=== PATIENT | female | born 1990 | race Caucasian/White ===

== ENCOUNTER 2019-12-24 12:04 | Inpatient (IN) ==
[2019-12-24] MEDS ORDERED: methylPREDNISolone 125 MG/2 ML VIAL IV STA (13:16)
[2019-12-24] MEDS ORDERED: ALBUT/IPRATROP 3MG/0.5MG NEB 3 ML VIAL NEB ONE (13:16)
--- NOTE | 2019-12-24 13:19 | Emergency Department Note ---
History of Present Illness General Chief Complaint: Shortness of Breath/Dyspnea Stated Complaint: TROUBLE BREATHING History of Present Illness Maximum Pain Intensity: 5 HPI Narrative: This patient is a pleasant 29-year-old female who presents emergency department ambulatory for evaluation of shortness of breath that started yesterday. She reports a mild productive cough for the last week. No fever. Denies chest pain. No sick contacts. The patient has a history of asthma. She tried her rescue inhaler at home with no relief. The patient does not take any baseline medication for her asthma. Home Medications Home Medications Medication Instructions Recorded Confirmed Type albuterol sulfate 1 puff INHALATION Q6H PRN 08/07/19 12/24/19 History prednisone See Rx Instructions .ROUTE .COMPLEX 12/24/19 12/24/19 History Allergies Allergy/AdvReac Type Severity Reaction Status Date / Time No Known Allergies Allergy Unverified 12/24/19 14:35 Past Med/Surg History Medical History Asthma Family History Father Cancer prostate cancer Social History Preferred Language: Croatian Communication Ability: Effective Geriatric Personal Care Aide Required: No Beliefs That Will Affect Care: None Current Living Situation: Spouse Other Information That Helps Us Care for You: No Feels Safe at Home: Yes Safety Concerns: Feels Safe At This Time Smoking Status: Never smoker Hx Alcohol Use: No Hx Substance Use: No Review of Systems A total of 10 systems reviewed and were otherwise negative Physical Exam Vital Signs: Vital Signs - 24 hr 12/24/19 12:08 12/24/19 12:45 12/24/19 13:00 Temperature 36.7 C Temperature Source Oral Pulse Rate 106 H 101 H Pulse Rate [Finger ] Pulse Rate from Sp O2 Sensor 101 H Pulse Rhythm [Fing er] Pulse Strength [Fi nger] Respiratory Rate 24 18 Respiratory Effort / Characteristics Short of Breath SO B on Exertion Non-Labored Sponta neous Respiratory Depth Normal Respiratory Patter n Regular Regular Blood Pressure 143/82 H 136/81 Blood Pressure [Ri ght Arm] Blood Pressure Shanice n 102 83 Blood Pressure Shanice n [Right Arm] Blood Pressure Pos ition Sitting Blood Pressure Pos ition [Right Arm] Pulse Oximetry 90 92 Oxygen Delivery Me thod Room Air Room Air Oxygen Flow Rate Sepsis Recent Feve r Within 48 Hours No Sepsis Action Take n by Nursing No Action Required Oxygen Flow Rate - Titration Pulse Oximetry Pos t Tiitration 12/24/19 13:05 12/24/19 13:30 12/24/19 13:41 Temperature Temperature Source Pulse Rate 89 Pulse Rate [Finger ] 93 H Pulse Rate from Sp O2 Sensor 91 H Pulse Rhythm [Fing er] Pulse Strength [Fi nger] Respiratory Rate 14 18 Respiratory Effort / Characteristics Non-Labored Sponta neous Respiratory Depth Respiratory Patter n Blood Pressure 102/79 Blood Pressure [Ri ght Arm] Blood Pressure Shanice n 80 Blood Pressure Shanice n [Right Arm] Blood Pressure Pos ition Blood Pressure Pos ition [Right Arm] Pulse Oximetry 86 L 91 90 Oxygen Delivery Me thod Room Air Nasal Can nula Nasal Cannula Oxygen Flow Rate 0 1 Sepsis Recent Feve r Within 48 Hours Sepsis Action Take n by Nursing Oxygen Flow Rate - Titration 2 Pulse Oximetry Pos t Tiitration 95 12/24/19 14:00 12/24/19 14:30 12/24/19 15:00 Temperature Temperature Source Pulse Rate 94 H 103 H Pulse Rate [Finger ] 97 H Pulse Rate from Sp O2 Sensor 95 H 103 H 106 H Pulse Rhythm [Fing er] Regular Pulse Strength [Fi nger] Normal Respiratory Rate 22 21 Respiratory Effort / Characteristics Non-Labored Sponta neous Respiratory Depth Normal Respiratory Patter n Regular Blood Pressure 131/89 142/81 H 142/93 H Blood Pressure [Ri ght Arm] 131/89 Blood Pressure Shanice n 99 100 104 Blood Pressure Shanice n [Right Arm] 103 Blood Pressure Pos ition Blood Pressure Pos ition [Right Arm] Lying Pulse Oximetry 95 93 87 L Oxygen Delivery Me thod Nebulizer Nasal Cannula Oxygen Flow Rate 2 Sepsis Recent Feve r Within 48 Hours Sepsis Action Take n by Nursing Oxygen Flow Rate - Titration Pulse Oximetry Pos t Tiitration 12/24/19 15:30 Temperature Temperature Source Pulse Rate 99 H Pulse Rate [Finger ] Pulse Rate from Sp O2 Sensor 99 H Pulse Rhythm [Fing er] Pulse Strength [Fi nger] Respiratory Rate 16 Respiratory Effort / Characteristics Respiratory Depth Respiratory Patter n Blood Pressure 130/85 Blood Pressure [Ri ght Arm] Blood Pressure Shanice n 99 Blood Pressure Shanice n [Right Arm] Blood Pressure Pos ition Blood Pressure Pos ition [Right Arm] Pulse Oximetry 88 L Oxygen Delivery Me thod Oxygen Flow Rate 2 Sepsis Recent Feve r Within 48 Hours Sepsis Action Take n by Nursing Oxygen Flow Rate - Titration Pulse Oximetry Pos t Tiitration Constitutional: WD/WN, vitals as above Eyes: EOM intact bilaterally ENMT: external ear and nose normal, oropharynx normal Neck: trachea midline Respiratory: Tachypnea noted. Diffuse wheezing bilaterally. Cardiovascular: Rate/Rhythm: + tachycardic Gastrointestinal (Abdomen): normal bowel sounds, soft, nontender, no hepatosplenomegaly Musculoskeletal: no cyanosis or clubbing, extremities motor strength 5/5 Skin: no rashes, warm and dry Neurologic: Alert and oriented x3. No focal motor deficits. Psychiatric: Acting appropriately Course Course Patient was seen and examined Vital signs including blood pressure were reviewed medications list was verified with patient Labs were obtained, and a saline lock was established Medications and imaging ordered An order was placed for continuous cardiac monitoring. The monitor shows a rate of 106 with sinus tachycardia rhythm. Upon reevaluation, the patient was not feeling much better. We discussed her results. She voiced understanding. Case was discussed with my supervising physician in addition to the [facility] hospitalist service. She was ordered magnesium 2 g IV. The patient will be evaluated by the hospitalist service for possible inpatient management. Consultations Consultation #1: [facility] hospitalist service Administered Medications Acetaminophen (Tylenol) 650 mg PO Q4H PRN PRN Reason: Pain or Fever Stop: 01/23/20 17:56 Last Admin: 12/24/19 19:57 Dose: 650 mg Documented by: [id number] Albuterol (Duoneb) 3 ml NEB QIDR [facility] Stop: 01/23/20 18:59 Last Admin: 12/25/19 20:06 Dose: 3 ml Documented by: [id number] Admin: 12/25/19 15:18 Dose: 3 ml Documented by: [id number] Admin: 12/25/19 11:08 Dose: 3 ml Documented by: [id number] Admin: 12/25/19 06:53 Dose: 3 ml Documented by: [id number] Admin: 12/24/19 19:51 Dose: 3 ml Documented by: [id number] Budesonide (Pulmicort Respules) 0.25 mg NEB BIDR [facility] Stop: 01/24/20 11:44 Last Admin: 12/25/19 20:05 Dose: 0.25 mg Documented by: [id number] Admin: 12/25/19 12:09 Dose: 0.25 mg Documented by: [id number] Promethazine HCl 12.5 mg/ (Sodium Chloride) 50.5 mls @ 202 mls/hr IV Q6H PRN PRN Reason: Nausea And Vomiting Stop: 01/23/20 19:33 Last Infusion: 12/24/19 20:15 Dose: 0 mls/hr Documented by: [id number] Admin: 12/24/19 19:56 Dose: 202 mls/hr Documented by: [id number] Methylprednisolone 60 mg/ (Syringe) 0.96 mls @ 1.5 mls/min IV Q8 SHEILA Stop: 01/24/20 21:59 Last Admin: 12/26/19 05:53 Dose: 1.5 mls/min Documented by: [id number] Admin: 12/25/19 20:51 Dose: 1.5 mls/min Documented by: [id number] Sodium Chloride ([place] Nasal) 1 sprays NA BID SHEILA Stop: 01/24/20 20:14 Last Admin: 12/25/19 20:52 Dose: 1 sprays Documented by: [id number] Admin: 12/25/19 20:51 Dose: 1 sprays Documented by: [id number] Discontinued Medications Albuterol (Duoneb) 12 ml NEB ONE ONE Stop: 12/24/19 13:17 Last Admin: 12/24/19 13:38 Dose: 12 ml Documented by: [id number] Azithromycin (Zithromax) 500 mg PO NOW ONE Stop: 12/25/19 21:01 Last Admin: 12/25/19 20:51 Dose: 500 mg Documented by: [id number] Magnesium Sulfate/Dextrose (Magnesium Sulfate / D5w) 1 gm in 100 mls @ 200 mls/hr IV Q1H ONE Stop: 12/24/19 16:21 Last Infusion: 12/24/19 17:14 Dose: 0 mls/hr Documented by: [id number] Admin: 12/24/19 16:01 Dose: 200 mls/hr Documented by: [id number] Sodium Chloride (Nss 1000ml) 1,000 mls @ 125 mls/hr IV .Q8H SHEILA Stop: 12/25/19 01:56 Last Infusion: 12/25/19 02:45 Dose: 0 mls/hr Documented by: [id number] Infusion: 12/24/19 20:15 Dose: 125 mls/hr Documented by: [id number] Infusion: 12/24/19 19:58 Dose: 0 mls/hr Documented by: [id number] Admin: 12/24/19 18:24 Dose: 125 mls/hr Documented by: [id number] Methylprednisolone 40 mg/ (Syringe) 0.64 mls @ 1.5 mls/min IV Q8 SHEILA Stop: 01/23/20 21:59 Last Admin: 12/25/19 13:28 Dose: 1.5 mls/min Documented by: [id number] Admin: 12/25/19 05:55 Dose: 1.5 mls/min Documented by: [id number] Admin: 12/24/19 21:40 Dose: 1.5 mls/min Documented by: [id number] Sodium Chloride (Nss) 500 mls @ 500 mls/hr IV .Q1H ONE Stop: 12/26/19 00:28 Last Infusion: 12/26/19 01:09 Dose: 0 mls/hr Documented by: [id number] Admin: 12/26/19 00:09 Dose: 500 mls/hr Documented by: [id number] Methylprednisolone (Solumedrol) 125 mg IV NOW STA Stop: 12/24/19 13:17 Last Admin: 12/24/19 14:11 Dose: 125 mg Documented by: [id number] Ondansetron HCl (Zofran) Confirm Administered Dose 4 mg .ROUTE .STK-MED ONE Stop: 12/24/19 16:12 Last Admin: 12/24/19 16:13 Dose: 4 mg Documented by: [id number] Ondansetron HCl (Zofran) 4 mg IV NOW STA Stop: 12/24/19 16:24 Last Admin: 12/24/19 16:27 Dose: Not Given Documented by: [id number] Ondansetron HCl (Zofran) 4 mg IV NOW STA Stop: 12/24/19 19:34 Last Admin: 12/24/19 19:56 Dose: Not Given Documented by: [id number] Medical Decision Making Differential Diagnosis Differential diagnosis: Asthma exacerbation, viral illness, bacterial illness, pneumonia, pulmonary embolus, cardiac abnormality, among others Medical Records Attestation: I reviewed the patient's medical records. Home Medications Current Medication List: was personally reviewed by me Laboratory Data Attestation: I reviewed the patient's lab results. Result diagrams: 12/25/19 05:34 12/25/19 05:34 Lab Results 12/24/19 12/24/19 12/24/19 Range/Units 12:59 12:59 12:59 WBC 6.50 (4.8-10.8) K/uL RBC 4.91 (4.2-5.4) M/uL Hgb 12.8 (12.0-16.0) g/dL Hct 39.8 (37-47) % MCV 81.1 (80-100) fL MCH 26.1 (25-34) pg MCHC 32.2 (32-36) g/dL RDW Std Deviation 42.6 (36.4-46.3) fL RDW Coeff of Kiera 14.4 (11.5-14.5) % Plt Count 393 (130-400) K/uL MPV 9.8 (7.4-10.4) fL Immature Gran % (Auto) 0.2 % Neut % (Auto) 65.4 % Lymph % (Auto) 20.2 % Ritchie % (Auto) 6.2 % Eos % (Auto) 7.5 % Baso % (Auto) 0.5 % Immature Gran # (Auto) 0.01 (0.00-0.02) K/uL Neut # (Auto) 4.26 (1.4-6.5) K/uL Lymph # (Auto) 1.31 (1.2-3.4) K/uL Ritchie # (Auto) 0.40 (0.11-0.59) K/uL Eos # (Auto) 0.49 (0-0.5) K/uL Baso # (Auto) 0.03 (0-0.2) K/uL Sodium 140 (136-145) mmol/L Potassium 3.8 (3.5-5.1) mmol/L Chloride 108 H (98-107) mmol/L Carbon Dioxide 25 (21-32) mmol/L Anion Gap 7.0 (3-11) BUN 10 (7-18) mg/dl Creatinine 0.72 (0.6-1.2) mg/dl Est Cr Clr Drug Dosing 133.5 ml/min Est GFR ( Amer) 132.1 Est GFR (Non-Af Amer) 114.0 BUN/Creatinine Ratio 14.1 (10-20) Glucose 91 (70-99) mg/dl Calcium 9.5 (8.5-10.1) mg/dl Total Bilirubin 0.6 (0.2-1) mg/dl AST 10 L (15-37) U/L ALT 20 (12-78) U/L Alkaline Phosphatase 46 (45-117) U/L Total Protein 8.0 (6.4-8.2) gm/dl Albumin 4.3 (3.4-5.0) gm/dl Globulin 3.7 (2.5-4.0) gm/dl Albumin/Globulin Ratio 1.2 (0.9-2) HCG, Qual Negative (Negative) Influenza Type A (PCR) (Neg) Influenza Type B (PCR) (Neg) 12/24/19 Range/Units 13:59 WBC (4.8-10.8) K/uL RBC (4.2-5.4) M/uL Hgb (12.0-16.0) g/dL Hct (37-47) % MCV (80-100) fL MCH (25-34) pg MCHC (32-36) g/dL RDW Std Deviation (36.4-46.3) fL RDW Coeff of Kiera (11.5-14.5) % Plt Count (130-400) K/uL MPV (7.4-10.4) fL Immature Gran % (Auto) % Neut % (Auto) % Lymph % (Auto) % Ritchie % (Auto) % Eos % (Auto) % Baso % (Auto) % Immature Gran # (Auto) (0.00-0.02) K/uL Neut # (Auto) (1.4-6.5) K/uL Lymph # (Auto) (1.2-3.4) K/uL Ritchie # (Auto) (0.11-0.59) K/uL Eos # (Auto) (0-0.5) K/uL Baso # (Auto) (0-0.2) K/uL Sodium (136-145) mmol/L Potassium (3.5-5.1) mmol/L Chloride (98-107) mmol/L Carbon Dioxide (21-32) mmol/L Anion Gap (3-11) BUN (7-18) mg/dl Creatinine (0.6-1.2) mg/dl Est Cr Clr Drug Dosing ml/min Est GFR ( Amer) Est GFR (Non-Af Amer) BUN/Creatinine Ratio (10-20) Glucose (70-99) mg/dl Calcium (8.5-10.1) mg/dl Total Bilirubin (0.2-1) mg/dl AST (15-37) U/L ALT (12-78) U/L Alkaline Phosphatase (45-117) U/L Total Protein (6.4-8.2) gm/dl Albumin (3.4-5.0) gm/dl Globulin (2.5-4.0) gm/dl Albumin/Globulin Ratio (0.9-2) HCG, Qual (Negative) Influenza Type A (PCR) Neg for Influ A (Neg) Influenza Type B (PCR) Neg for Influ B (Neg) Imaging Data Attestation: I personally reviewed and interpreted this imaging study as follows: Radiologist's Impression: Chest x-ray IMPRESSION: No acute process. ACT 112: Negative or not required by law. The above report was generated using voice recognition software. It may contain grammatical, syntax or spelling errors. Electronically signed by: Lorne Rich M.D. 12/24/2019 3:24 PM Dictated: 12/24/19 1523 Transcribed: 12/24/19 1523 [facility] Narrative This patient is a 29-year-old female who presents to the emergency department with a nonproductive cough and shortness of breath. On exam, she was hypoxic. She had significant wheezing. Labs are fairly unremarkable. Influenza negative. Chest x-ray is clear. Unfortunately, the patient did not have symptomatic relief in the emergency department with an hour-long nebulizer treatment and steroids. For this reason, hospitalist evaluation was felt to be warranted. She will be evaluated for likely inpatient management. Of note, the patient did not have any risk factors for PE. She has significant wheezing on exam; therefore, a CT of the chest was felt unnecessary. Impression & Plan Asthma with exacerbation, Acute respiratory failure Discharge Plan Visit Data *Final* Discharge Date/Time: 12/24/19 17:18 Chief Complaint: Shortness of Breath/Dyspnea Stated Complaint: TROUBLE BREATHING ED Provider: Tsering,Devin T ED Midlevel Provider: Coco Ledesma Discharge Problem: Asthma with exacerbation, Acute respiratory failure Patient Disposition: Admitted As Inpatient Discharge Instructions Interventions: ED Discharge Assessment Last Done: 12/24/19 17:18
[2019-12-24 13:29] LABS: Basophils # (auto) 0.03 K/uL (0-0.2); Basophils % (auto) 0.5 %; Eosinophils # (auto) 0.49 K/uL (0-0.5); Eosinophils % (auto) 7.5 %; Hematocrit (blood only) 39.8 % (37-47); Hemoglobin 12.8 g/dL (12.0-16.0); Immature Granulocytes # (auto) 0.01 K/uL (0.00-0.02); Immature Granulocytes % (auto) 0.2 %; Lymphocytes # (auto) 1.31 K/uL (1.2-3.4); Lymphocytes % (auto) 20.2 %; Mean Corpuscular Hemoglobin 26.1 pg (25-34); Mean Corpuscular Hgb Conc 32.2 g/dL (32-36); Mean Corpuscular Volume 81.1 fL (80-100); Mean Platelet Volume 9.8 fL (7.4-10.4); Monocytes % (auto) 6.2 %; Neutrophils # (auto) 4.26 K/uL (1.4-6.5); Neutrophils % (auto) 65.4 %; Platelet Count 393 K/uL (130-400); RDW Coefficient of Variation 14.4 % (11.5-14.5); RDW Standard Deviation 42.6 fL (36.4-46.3); Red Blood Count 4.91 M/uL (4.2-5.4)
[2019-12-24 13:38] LABS: Albumin Level 4.3 gm/dl (3.4-5.0); BUN Creatinine Ratio 14.1 (10-20); Calcium 9.5 mg/dl (8.5-10.1); Creatinine Clr Calc Pharmacy 133.5 ml/min; Est GFR (African American) 132.1; Potassium 3.8 mmol/L (3.5-5.1)
[2019-12-24 13:40] LABS: Albumin Globulin Ratio 1.2 (0.9-2); Bilirubin,Total 0.6 mg/dl (0.2-1); Globulin 3.7 gm/dl (2.5-4.0)
[2019-12-24 14:02] LABS: Pregnancy Test, Serum Negative (Negative)
[2019-12-24 14:51] LABS: Influenza A virus by PCR Neg for Influ A (Neg); Influenza B virus by PCR Neg for Influ B (Neg)
--- NOTE | 2019-12-24 15:26 | XRay Report ---
XR chest 2V PA/lateral HISTORY: 29 years-old Female SOB acute shortness of breath with cough COMPARISON: Chest radiographs 08/07/2019 TECHNIQUE: PA and lateral views of the chest FINDINGS: Cardiomediastinal and hilar silhouettes are within normal limits. No pneumothorax, pleural effusion, focal airspace consolidation or overt pulmonary edema. The bones of the chest appear grossly intact. IMPRESSION: No acute process. ACT 112: Negative or not required by law. The above report was generated using voice recognition software. It may contain grammatical, syntax o r spelling errors. Electronically signed by: Lorne Rich M.D. 12/24/2019 3:24 PM
[2019-12-24] MEDS ORDERED: MAGNESIUM SULFATE / D5W 1 GM/100 ML BAG IV ONE (15:52)
[2019-12-24] MEDS ORDERED: ONDANSETRON INJ 2 MG/ML 2 ML VIAL ONE (16:11)
[2019-12-24] MEDS ORDERED: ONDANSETRON INJ 2 MG/ML 2 ML VIAL IV STA ×2 (16:23→19:33)
--- NOTE | 2019-12-24 16:28 | History & Physical Report ---
Date of Service December 24, 2019 Assessment & Plan (1) Asthma exacerbation: (2) Hypoxia: Presented to ER with c/o increased SOB/wheezing x 1 month with acute worsening over past day In ER afebrile, P: 106, R: 24, BP: 143/82, 90% RA drops to 88%, up to 91% on 2L NC No leukocytosis. Negative influenza swab. Chest x-ray without acute infiltrate -In ER given hour-long nebulizer, Solu-Medrol 125 mg IV, magnesium 1 g IV -Supplemental oxygen as needed -Solu-Medrol 40mg IVQ8H -Scheduled duonebs -Patient was prescribed Advair and prednisone taper outpatient several weeks ago however never started -Consider PFT testing outpatient when symptoms improve -CBC, BMP in am DVT Prophylaxis -Ambulate, low risk Full Code Follows with Dr Lesli Clay for routine care Pt was seen and care coordinated with Dr Ortiz. See addendum History of Present Illness Chief Complaint: SOB Primary Care Provider: Lesli Clay DO Pt is 29 y/o F with PMH asthma presented to ER with complaint of increased shortness of breath. She reports for the past month has had increased shortness of breath and wheezing. She reports needing to use her albuterol inhaler several times a day with some relief. Reports prior asthma triggers are exercise. Patient states last night became more short of breath and had increased wheezing and nonproductive cough. Denies fevers or chills. Denies hx PFT testing in past. Seen in clinic 12/14/2019 for increased SOB and wheezing and was prescribed Prednisone taper and Advair however did not start taking these medications. Patient reports vapes approximately 3 times a week. Denies tobacco smoking or being around secondhand smoke. Denies ill contacts, recent travel. In ER was given IV magnesium and then became nauseated and vomited times once. Otherwise denies any nausea prior. Denies diarrhea, constipation, TOL[place], dizziness, syncope, vision changes, neck pain, orthopnea, palpitations, sore throat, choking, otalgia, rhinorrhea, abdominal pain, paresthesias, weakness, extremity weakness, extremity edema, rashes, urinary symptoms. Allergies Allergy/AdvReac Type Severity Reaction Status Date / Time No Known Allergies Allergy Unverified 12/24/19 14:35 Home Medications Home Medications Medication Instructions Recorded Confirmed Type albuterol sulfate 1 puff INHALATION Q6H PRN 08/07/19 12/24/19 History prednisone See Rx Instructions .ROUTE .COMPLEX 12/24/19 12/24/19 History Past Med/Surg History Medical History Asthma Family History (Updated 12/24/19 @ 18:15 by Jessie Dee PA-C) Father Cancer prostate cancer Social History Preferred Language: Latvian Communication Ability: Effective Pile Trimmer Required: No Beliefs That Will Affect Care: None Current Living Situation: Spouse Other Information That Helps Us Care for You: No Feels Safe at Home: Yes Safety Concerns: Feels Safe At This Time Smoking Status: Never smoker Hx Alcohol Use: No Hx Substance Use: No Review of Systems Review of Systems: All systems reviewed & are unremarkable except as noted in HPI & below Physical Exam Physical Exam: General: no distress, WDWN Head: normocephalic, atraumatic Eyes: PERRL, EOM's intact, conjunctiva non-injected, anicteric ENT: normal inspection external ears, nose, mucous membranes moist Neck: supple, trachea midline Lungs: mild respiratory distress, 91% on 2L NC, +diffuse wheezing throughout, no rhonchi/rales CV: RRR, no murmur, no pretibial edema Abd: normal BS, soft, non-tender Ext: no cyanosis, no calf tenderness Neuro: A&O x 3, no focal deficits noted, normal affect Skin: warm, dry Results & Data Vital Signs (Past 12 Hours) Vital Signs Temp Pulse Pulse Resp BP BP Pulse Ox 12/24/19 15:30 99 H 16 130/85 88 L 12/24/19 15:00 142/93 H 87 L 12/24/19 14:30 103 H 21 142/81 H 93 12/24/19 14:00 94 H 97 H 22 131/89 131/89 95 12/24/19 13:41 93 H 18 90 12/24/19 13:30 89 14 102/79 91 12/24/19 13:05 86 L 12/24/19 13:00 101 H 18 136/81 92 12/24/19 12:08 36.7 C 106 H 24 143/82 H 90 Laboratory Results Short CBC 12/24/19 Range/Units 12:59 WBC 6.50 (4.8-10.8) K/uL Hgb 12.8 (12.0-16.0) g/dL Hct 39.8 (37-47) % Plt Count 393 (130-400) K/uL BMP 12/24/19 12:59 Sodium 140 Potassium 3.8 Chloride 108 H Carbon Dioxide 25 BUN 10 Creatinine 0.72 Glucose 91 Calcium 9.5 Liver Function 12/24/19 Range/Units 12:59 Total Bilirubin 0.6 (0.2-1) mg/dl AST 10 L (15-37) U/L ALT 20 (12-78) U/L Alkaline Phosphatase 46 (45-117) U/L Albumin 4.3 (3.4-5.0) gm/dl Diagnostic Findings CXR: IMPRESSION: No acute process. Code Status & VTE Plan VTE Prophylaxis Plan VTE Prophylaxis will be ordered: No Supervising Physician Co-Signing Physician Notes Attending addendum The patient was seen and examined in emergency room She has history of asthma and has been complaining of more shortness of breath with cough since Tuesday last Denies any fever and/or chills Denies any chest pain and/or palpitation On examination Minimal shortness of breath at rest Hemodynamically stable with tachycardia of about 104/min Chest- decreased breath sounds bilaterally with moderate wheezing all over without any crackles Heart-S1, S2-regular Abdomen-benign Extremities-negative for any edema 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
[2019-12-24] MEDS ORDERED: SODIUM CHLORIDE 0.9% 1000ML 1,000 ML IV SCH (17:57)
[2019-12-24] MEDS ORDERED: ONDANSETRON INJ 2 MG/ML 2 ML VIAL IV PRN (17:57)
[2019-12-24] MEDS ORDERED: ACETAMINOPHEN 325 MG TAB PO PRN (17:57)
[2019-12-24] MEDS ORDERED: PROMETHAZINE HCL 12.5 MG in SODIUM CHLORIDE 0.9% 50 ML IV PRN (19:34)
[2019-12-24] MEDS: ALBUT/IPRATROP 3MG/0.5MG NEB 3 ML VIAL NEB SCH (19:51)
[2019-12-24] MEDS: methylPREDNISolone 40 MG in SYRINGE 0 ML IV SCH (21:40)
[2019-12-25] MEDS: methylPREDNISolone 40 MG in SYRINGE 0 ML IV SCH ×2 (05:55→13:28)
[2019-12-25 06:07] LABS: Hematocrit (blood only) 38.5 % (37-47); Hemoglobin 12.3 g/dL (12.0-16.0); Mean Corpuscular Hemoglobin 25.8 pg (25-34); Mean Corpuscular Hgb Conc 31.9 g/dL (32-36); Mean Corpuscular Volume 80.7 fL (80-100); Mean Platelet Volume 9.7 fL (7.4-10.4); Platelet Count 404 K/uL (130-400); RDW Coefficient of Variation 14.2 % (11.5-14.5); RDW Standard Deviation 41.9 fL (36.4-46.3); Red Blood Count 4.77 M/uL (4.2-5.4); White Blood Count 7.42 K/uL (4.8-10.8)
[2019-12-25 06:36] LABS: BUN Creatinine Ratio 13.5 (10-20); Calcium 9.1 mg/dl (8.5-10.1); Creatinine Clr Calc Pharmacy 158.4 ml/min; Est GFR (African American) 143.8; Potassium 4.3 mmol/L (3.5-5.1)
[2019-12-25] MEDS: ALBUT/IPRATROP 3MG/0.5MG NEB 3 ML VIAL NEB SCH ×4 (06:53→20:06)
[2019-12-25] MEDS ORDERED: ALBUT/IPRATROP 3MG/0.5MG NEB 3 ML VIAL NEB PRN (11:59)
[2019-12-25] MEDS: BUDESONIDE 0.25 MG/2 ML VIAL (PULMICORT) NEB SCH ×2 (12:09→20:05)
--- NOTE | 2019-12-25 20:15 | Hospitalist Progress Note ---
Date of Service December 25, 2019 Assessment & Plan (1) Asthma exacerbation: (2) Hypoxia: Presented to ER with c/o increased SOB/wheezing x 1 month with acute worsening over past day In ER afebrile, P: 106, R: 24, BP: 143/82, 90% RA drops to 88%, up to 91% on 2L NC No leukocytosis. Negative influenza swab. Chest x-ray without acute infiltrate -In ER given hour-long nebulizer, Solu-Medrol 125 mg IV, magnesium 1 g IV -pt vomited after getting Mag in the ED (Mag level checked this AM - 2.8) -Supplemental oxygen as needed -Solu-Medrol 40mg IVQ8H -Scheduled DuoNebs -Patient was prescribed Advair and prednisone taper outpatient several weeks ago however never started -Consider PFT testing outpatient when symptoms improve -CBC, BMP in am - pt seemed to have more rhonchi and then significant nasal congestion in the afternoon, increased steroid to 60 IV q8hrs, added nasal spray and azithromycin - will cont. to closely monitor DVT Prophylaxis -Ambulate, low risk Full Code Follows with Dr Lesli Clay for routine care Admission and Anticipated Discharge Date Admission Date: December 24, 2019 Subjective Pt is lying in bed, in NAD. On oxymask, 5L. Denies any fever, chills, chest pain, rhinorrhea, sinus congestion. Also denies any abd.pain, nausea or vomiting. Update: evaluated later in the day, pt seemed to have nasal/sinus congestion Review of Systems Review of Systems: All systems reviewed & are unremarkable except as noted in HPI & below Constitutional: no fever and no chills Respiratory: + cough and + dyspnea Cardiovascular: no chest pain, no palpitations and no edema Gastrointestinal: no abdominal pain, no nausea and no vomiting Physical Exam Physical Exam: General: young female, lying in bed, on oxymask, 5L, does not appear in distress Head: normocephalic, atraumatic Eyes: PERRL, EOM's intact, conjunctiva non-injected, anicteric ENT: normal inspection external ears, nose, mucous membranes moist Neck: supple, trachea midline Lungs: +mild diffuse wheezing and + loud diffuse rhonchi CV: RRR, no murmur, no pretibial edema Abd: normal BS, soft, non-tender, nondistended Ext: no cyanosis, no calf tenderness Neuro: A&O x 3, speech fluent, no facial asymmetry, no focal deficits noted, normal affect, moves extremities spontaneously Skin: warm, dry Results & Data ([facility]) Vital Signs (Past 12 Hours) Vital Signs Temp Pulse Pulse Resp BP BP Pulse Ox 12/25/19 20:06 114 H 20 97 12/25/19 19:00 36.8 C 96 H 16 109/57 L 94 12/25/19 15:41 102 H 12/25/19 15:35 96 H 18 112/65 12/25/19 15:20 90 18 96 12/25/19 15:12 37.0 C 84 20 119/63 95 12/25/19 12:13 94 H 16 90 12/25/19 11:39 37 C 87 20 117/69 95 12/25/19 11:08 100 H 16 94 Laboratory Results 12/25/19 12/25/19 12/25/19 Range/Units 12:14 11:46 05:34 WBC (4.8-10.8) K/uL RBC (4.2-5.4) M/uL Hgb (12.0-16.0) g/dL Hct (37-47) % MCV (80-100) fL MCH (25-34) pg MCHC (32-36) g/dL RDW Std Deviation (36.4-46.3) fL RDW Coeff of Kiera (11.5-14.5) % Plt Count (130-400) K/uL MPV (7.4-10.4) fL Sodium 138 (136-145) mmol/L Potassium 4.3 (3.5-5.1) mmol/L Chloride 107 (98-107) mmol/L Carbon Dioxide 24 (21-32) mmol/L Anion Gap 6.0 (3-11) BUN 8 (7-18) mg/dl Creatinine 0.60 (0.6-1.2) mg/dl Est Cr Clr Drug Dosing 158.4 ml/min Est GFR ( Amer) 143.8 Est GFR (Non-Af Amer) 124.0 BUN/Creatinine Ratio 13.5 (10-20) Glucose 134 H (70-99) mg/dl Calcium 9.1 (8.5-10.1) mg/dl Magnesium 2.8 H (1.8-2.4) mg/dl Procalcitonin < 0.05 (0-0.5) ng/ml 12/25/19 Range/Units 05:34 WBC 7.42 (4.8-10.8) K/uL RBC 4.77 (4.2-5.4) M/uL Hgb 12.3 (12.0-16.0) g/dL Hct 38.5 (37-47) % MCV 80.7 (80-100) fL MCH 25.8 (25-34) pg MCHC 31.9 L (32-36) g/dL RDW Std Deviation 41.9 (36.4-46.3) fL RDW Coeff of Kiera 14.2 (11.5-14.5) % Plt Count 404 H (130-400) K/uL MPV 9.7 (7.4-10.4) fL Sodium (136-145) mmol/L Potassium (3.5-5.1) mmol/L Chloride (98-107) mmol/L Carbon Dioxide (21-32) mmol/L Anion Gap (3-11) BUN (7-18) mg/dl Creatinine (0.6-1.2) mg/dl Est Cr Clr Drug Dosing ml/min Est GFR ( Amer) Est GFR (Non-Af Amer) BUN/Creatinine Ratio (10-20) Glucose (70-99) mg/dl Calcium (8.5-10.1) mg/dl Magnesium (1.8-2.4) mg/dl Procalcitonin (0-0.5) ng/ml Medications Administered Current Inpatient Medications Acetaminophen (Tylenol) 650 mg PO Q4H PRN PRN Reason: Pain or Fever Stop: 01/23/20 17:56 Last Admin: 12/24/19 19:57 Dose: 650 mg Documented by: Albuterol (Duoneb) 3 ml NEB QIDR [facility] Stop: 01/23/20 18:59 Last Admin: 12/25/19 20:06 Dose: 3 ml Documented by: Albuterol (Duoneb) 3 ml NEB Q2H PRN PRN Reason: wheezing Stop: 01/24/20 11:59 Budesonide (Pulmicort Respules) 0.25 mg NEB BIDR [facility] Stop: 01/24/20 11:44 Last Admin: 12/25/19 20:05 Dose: 0.25 mg Documented by: Methylprednisolone 40 mg/ (Syringe) 0.64 mls @ 1.5 mls/min IV Q8 SHEILA Stop: 01/23/20 21:59 Last Admin: 12/25/19 13:28 Dose: 1.5 mls/min Documented by: Promethazine HCl 12.5 mg/ (Sodium Chloride) 50.5 mls @ 202 mls/hr IV Q6H PRN PRN Reason: Nausea And Vomiting Stop: 01/23/20 19:33 Last Infusion: 12/24/19 20:15 Dose: Infused Documented by: Ondansetron HCl (Zofran) 4 mg IV Q6H PRN PRN Reason: Nausea Stop: 01/23/20 17:56 Sodium Chloride ([place] Nasal) 1 sprays NA BID ONE Stop: 12/25/19 20:10
[2019-12-25] MEDS: SODIUM CHLORIDE 0.65% NA SOLN 45 ML (OCEAN) SCH ×2 (20:51→20:52)
[2019-12-25] MEDS: methylPREDNISolone 60 MG in SYRINGE 0 ML IV SCH (20:51)
[2019-12-25] MEDS ORDERED: AZITHROMYCIN 250 MG TAB PO ONE (21:00)
[2019-12-25] MEDS ORDERED: SODIUM CHLORIDE 0.9% 500 ML IV ONE (23:29)
[2019-12-26] MEDS: methylPREDNISolone 60 MG in SYRINGE 0 ML IV SCH (05:53)
[2019-12-26] MEDS: BUDESONIDE 0.25 MG/2 ML VIAL (PULMICORT) NEB SCH ×2 (07:33→18:48)
[2019-12-26] MEDS: ALBUT/IPRATROP 3MG/0.5MG NEB 3 ML VIAL NEB SCH ×4 (07:34→18:48)
[2019-12-26] MEDS: SODIUM CHLORIDE 0.65% NA SOLN 45 ML (OCEAN) SCH ×2 (08:16→20:44)
[2019-12-26] MEDS: AZITHROMYCIN 250 MG TAB PO SCH (08:16)
--- NOTE | 2019-12-26 13:52 | Hospitalist Progress Note ---
Date of Service December 26, 2019 Assessment & Plan (1) Asthma exacerbation: Presented with acute hypoxemic respiratory failure: History of asthma, Presents to the ER with complaint of shortness of breath/wheezing In the ER patient was afebrile, was tachycardic, tachypneic respiratory 24 SPO2 dropped to 88% in room air, Required supplemental oxygen Flu swab negative, chest x-ray shows no evidence of infiltrate Patient started with IV Solu-Medrol for asthma exacerbation, Continue scheduled DuoNeb She was prescribed Advair and prednisone taper outpatient several weeks ago which she never started Respiratory status gradually improving, supplemental oxygen has been weaned down Patient reports of no cough no respiratory distress, Wheeze noted, We will DC IV Solu-Medrol start with p.o. prednisone, will gradual taper Will need outpatient pulmonary function testing Patient is a non-smoker, Admits of vaping a month ago Patient is counseled for complete abstinence from vaping, as it has been increasing evidence to cause significant lung injury/respiratory failure Verbalized understanding (2) Sinus tachycardia: Patient noted to be in sinus tach with heart rate variable between 100 at resting, [id number] with minimum activity/ambulation She denies of any symptoms-palpitation chest heaviness, dizzy spell or lightheadedness Reports of feeling anxious, felt flushed after IV steroids yesterday, IV Solu-Medrol discontinued, no audible wheeze, started with p.o. prednisone taper We will check for d-dimer, will need CT chest with contrast study to rule out PE/lower extremity Doppler to rule out DVT : if d-dimer is positive CODE STATUS: Full code Disposition: To be discharged home when medically stable Admission and Anticipated Discharge Date Admission Date: December 24, 2019 Subjective Patient appears to be comfortable, at present on 2 L oxygen via nasal cannula (not on home O2 Sinus tachycardia noted with activity/ambulation heart rate noted to be 150 at around 930 this morning Patient denies of any feeling of palpitation, shortness of breath or dyspnea on exertion, no dizzy spell or lightheadedness Does not have any cough No fevers or chills Review of Systems Review of Systems: All systems reviewed & are unremarkable except as noted in HPI & below Constitutional: no fever, no chills and no fatigue Respiratory: + wheezing; no cough, no dyspnea, no dyspnea on exertion and no pain with cough Cardiovascular: + chest pain, + chest pain at rest and + problem reported (Tachycardia); no palpitations Gastrointestinal: no abdominal pain Physical Exam Constitutional: WD/WN, vitals as above no acute distress Eyes: PERRL, conjunctivae normal, anicteric sclerae ENMT: external ear and nose normal, oropharynx normal Neck: trachea midline, no thyromegaly Respiratory: normal respiratory effort and + cough; no respiratory distress Auscultation: no crackles, no rhonchi and no wheezes Cardiovascular: Rate/Rhythm: regular rate, regular rhythm and + tachycardic (Rate increases to 150 with activity) Gastrointestinal (Abdomen): normal bowel sounds, soft, nontender, no hepato splenomegaly Musculoskeletal: no cyanosis or clubbing, extremities motor strength 5/5 Skin: no rashes, warm and dry Neurologic: PERRL, EOMI, accommodation nl, no face palsy, no dysarthria Psychiatric: A+Ox3, euthymic affect Results & Data ([facility]) Vital Signs (Past 12 Hours) Vital Signs Temp Pulse Pulse Resp BP BP Pulse Ox 12/26/19 13:41 105 H 94 12/26/19 11:32 36.5 C 103 H 20 121/62 94 12/26/19 11:19 89 16 95 12/26/19 08:56 12/26/19 07:43 36.6 C 70 18 101/57 L 96 12/26/19 07:37 64 18 97 12/26/19 07:05 77 12/26/19 04:00 36.7 C 76 20 113/61 96 Pulse Ox 12/26/19 13:41 12/26/19 11:32 12/26/19 11:19 12/26/19 08:56 91 12/26/19 07:43 12/26/19 07:37 12/26/19 07:05 12/26/19 04:00
[2019-12-26 17:44] LABS: D Dimer 770 ug/L FEU (0-500)
[2019-12-26] MEDS ORDERED: OPTIRAY 320 125ml IV PRN (22:41)
--- NOTE | 2019-12-26 22:56 | CT Scan Report ---
CHEST CTA for PULMONARY ARTERIES CT DOSE: 336.69 mGy.cm HISTORY: Asthma. Difficulty breathing. TECHNIQUE: Multiaxial CT images of the chest were performed following the intravenous administration of contrast to evaluate the pulmonary arteries. Maximal intensity projection images were also obtaine d. A dose lowering technique was utilized adhering to the principles of ALARA. COMPARISON STUDY: Chest 12/24/2019. FINDINGS: Normal caliber thoracic aorta with no evidence for dissection. No pericardial effusion. Tra ce bilateral pleural effusions. No filling defects within the pulmonary arteries to suggest pulmonary embolus. No fractures within the visualized osseous structures. Limited views of the upper abdomen d emonstrate a normal liver and spleen. Normal esophagus. No mediastinal or hilar lymphadenopathy. No p neumothorax. The central airways are patent. Mild central bronchial wall thickening. A few partially opacified left lower lobe bronchi. A few bibasilar linear groundglass densities most pronounced withi n the left lower lobe. IMPRESSION: 1. No evidence for pulmonary embolus. 2. Trace bilateral pleural effusions. 3. Mild bronchial wall thickening. This could be secondary to a bronchitis/reactive airways disease. 4. A few bibasilar linear and groundglass densities. This favors atelectasis. A mild pneumonitis coul d also have a similar appearance. ACT 112: Negative or not required by law. Electronically signed by: Parminder Lynn M.D. 12/26/2019 10:55 PM
[2019-12-27] MEDS: ALBUT/IPRATROP 3MG/0.5MG NEB 3 ML VIAL NEB SCH (07:01)
[2019-12-27] MEDS: BUDESONIDE 0.25 MG/2 ML VIAL (PULMICORT) NEB SCH (07:01)
--- NOTE | 2019-12-27 07:04 | Ultrasound Report ---
ULTRASOUND BILATERAL LOWER EXTREMITY VENOUS CLINICAL HISTORY: Dyspnea. Clinical concern for deep venous thrombosis. COMPARISON STUDY: No priors. TECHNIQUE: Real-time, grayscale, and color Doppler sonography of the deep veins of the right and left lower extremity was performed from the inguinal crease to the calf. Compression and augmentation wer e utilized. FINDINGS: There is no sonographic evidence of deep venous thrombosis identified in the right or left lower extremity. The common femoral, superficial femoral, and popliteal veins are patent and normally compressible bilaterally. The greater saphenous vein and the profunda femoris vein at the junction w ith the common femoral vein are clear in both legs. The visualized calf veins are patent bilaterally. IMPRESSION: There is no sonographic evidence of deep venous thrombosis identified in the right or lef t lower extremity. ACT 112: Negative or not required by law. Electronically signed by: Cisco Ramos M.D. 12/27/2019 7:03 AM
[2019-12-27] MEDS: AZITHROMYCIN 250 MG TAB PO SCH (08:24)
[2019-12-27] MEDS: SODIUM CHLORIDE 0.65% NA SOLN 45 ML (OCEAN) SCH (08:24)
[2019-12-27] MEDS ORDERED: predniSONE 20 MG TAB PO SCH (09:00)
--- NOTE | 2019-12-27 09:21 | Hospitalist Progress Note ---
Date of Service December 27, 2019 Assessment & Plan (1) Asthma exacerbation: Feels fine, no hypoxia, has been on room air since yesterday, no tachycardia, No cough no wheeze no fever, Patient is well enough to be discharged home Prescription for albuterol rescue inhaler, Advair and prednisone taper sent to her pharmacy Family physician follow-up scheduled for tomorrow 12/28/2019 Will need outpatient pulmonary function testing patient Presented with acute hypoxemic respiratory failure: Admitted on 12/24/2019 History of asthma, Presents to the ER with complaint of shortness of breath/wheezing In the ER patient was afebrile, was tachycardic, tachypneic respiratory rate 24 SPO2 dropped to 88% in room air, Required supplemental oxygen Flu swab negative, chest x-ray shows no evidence of infiltrate Patient started with IV Solu-Medrol /DuoNeb treatment for asthma exacerbation, Patient was started on prednisone taper yesterday, Patient is a non-smoker, Admits of vaping a month ago Patient is counseled for complete abstinence from vaping, as it has been increasing evidence to cause significant lung injury/respiratory failure Verbalized understanding (2) Sinus tachycardia: Sinus tachycardia noted on telemetry yesterday, Heart rate improved after shortness of breath hypoxia has resolved CT chest with contrast for PE: Shows negative for pulmonary embolism 1. No evidence for pulmonary embolus. 2. Trace bilateral pleural effusions. 3. Mild bronchial wall thickening. This could be secondary to a bronchitis/reactive airways disease. 4. A few bibasilar linear and groundglass densities. This favors atelectasis. A mild pneumonitis could also have a similar appearance. Lower extremity Doppler negative for DVT Patient was treated with p.o. Zithromax, antibiotic day #2 Will be discharged on 3 more days of antibiotic CODE STATUS: Full code Disposition: Stable to be discharged home Admission and Anticipated Discharge Date Admission Date: December 24, 2019 Subjective feels fine , no cough or SOB in room air stable to be discharged home today Review of Systems Review of Systems: All systems reviewed & are unremarkable except as noted in HPI & below Respiratory: no cough, no dyspnea, no dyspnea on exertion, no sputum production and no wheezing Physical Exam Constitutional: WD/WN, vitals as above no acute distress Eyes: PERRL, conjunctivae normal, anicteric sclerae ENMT: external ear and nose normal, oropharynx normal Neck: trachea midline, no thyromegaly Respiratory: normal respiratory effort; no respiratory distress Auscultation: no crackles, no rhonchi and no wheezes Cardiovascular: Rate/Rhythm: regular rate and regular rhythm Gastrointestinal (Abdomen): normal bowel sounds, soft, nontender, no hepatosplenomegaly Musculoskeletal: no cyanosis or clubbing, extremities motor strength 5/5 Skin: no rashes, warm and dry Neurologic: PERRL, EOMI, accommodation nl, no face palsy, no dysarthria Psychiatric: A+Ox3, euthymic affect Results & Data ([facility]) Vital Signs (Past 12 Hours) Vital Signs Temp Pulse Pulse Resp BP Pulse Ox 12/27/19 07:13 75 12/27/19 07:03 85 18 94 12/27/19 06:39 36.4 C L 80 21 106/62 94 12/27/19 04:07 36.9 C 88 19 111/74 94 12/26/19 23:58 91 H 12/26/19 23:41 36.6 C 73 19 133/81 95
--- NOTE | 2019-12-27 23:37 | Discharge Summary ---
Date of Service December 27, 2019 Admission HPI Per Admitting Provider Pt is 29 y/o F with PMH asthma presented to ER with complaint of increased shortness of breath. She reports for the past month has had increased shortness of breath and wheezing. She reports needing to use her albuterol inhaler several times a day with some relief. Reports prior asthma triggers are exercise. Patient states last night became more short of breath and had increased wheezing and nonproductive cough. Denies fevers or chills. Denies hx PFT testing in past. Seen in clinic 12/14/2019 for increased SOB and wheezing and was prescribed Prednisone taper and Advair however did not start taking these medications. Patient reports vapes approximately 3 times a week. Denies tobacco smoking or being around secondhand smoke. Denies ill contacts, recent travel. In ER was given IV magnesium and then became nauseated and vomited times once. Otherwise denies any nausea prior. Denies diarrhea, constipation, [place], dizziness, syncope, vision changes, neck pain, orthopnea, palpitations, sore throat, choking, otalgia, rhinorrhea, abdominal pain, paresthesias, weakness, extremity weakness, extremity edema, rashes, urinary symptoms. Principal Diagnosis Asthma exacerbation Discharge Exam Constitutional WD/WN, vitals as above no acute distress Eyes PERRL, conjunctivae normal, anicteric sclerae ENMT external ear and nose normal, oropharynx normal Neck trachea midline, no thyromegaly Respiratory normal respiratory effort; no respiratory distress Auscultation: no crackles, no rhonchi and no wheezes Cardiovascular Rate/Rhythm: regular rate and regular rhythm Gastrointestinal (Abdomen) normal bowel sounds, soft, nontender, no hepatosplenomegaly Musculoskeletal no cyanosis or clubbing, extremities motor strength 5/5 Skin no rashes, warm and dry Neurologic PERRL, EOMI, accommodation nl, no face palsy, no dysarthria Psychiatric A+Ox3, euthymic affect Discharge Data Allergies Allergy/AdvReac Type Severity Reaction Status Date / Time No Known Allergies Allergy Unverified 12/24/19 14:35 Consultations 12/24/19 15:52 ED Decision to Admit Stat Ordered Studies 12/26/19 22:22 CT angio chest PE protocol Stat 12/26/19 22:23 US venous doppler [facility] Urgent Hospital Course (1) Asthma exacerbation: Feels fine, no hypoxia, has been on room air since yesterday, no tachycardia, No cough no wheeze no fever, Patient is well enough to be discharged home Prescription for albuterol rescue inhaler, Advair and prednisone taper sent to her pharmacy Family physician follow-up scheduled for tomorrow 12/28/2019 Will need outpatient pulmonary function testing patient Presented with acute hypoxemic respiratory failure: Admitted on 12/24/2019 History of asthma, Presents to the ER with complaint of shortness of breath/wheezing In the ER patient was afebrile, was tachycardic, tachypneic respiratory rate 24 SPO2 dropped to 88% in room air, Required supplemental oxygen Flu swab negative, chest x-ray shows no evidence of infiltrate Patient started with IV Solu-Medrol /DuoNeb treatment for asthma exacerbation, Patient was started on prednisone taper yesterday, Patient is a non-smoker, Admits of vaping a month ago Patient is counseled for complete abstinence from vaping, as it has been increasing evidence to cause significant lung injury/respiratory failure Verbalized understanding (2) Sinus tachycardia: Sinus tachycardia noted on telemetry yesterday, Heart rate improved after shortness of breath hypoxia has resolved CT chest with contrast for PE: Shows negative for pulmonary embolism 1. No evidence for pulmonary embolus. 2. Trace bilateral pleural effusions. 3. Mild bronchial wall thickening. This could be secondary to a bronchitis/reactive airways disease. 4. A few bibasilar linear and groundglass densities. This favors atelectasis. A mild pneumonitis could also have a similar appearance. Lower extremity Doppler negative for DVT Patient was treated with p.o. Zithromax, antibiotic day #2 Will be discharged on 3 more days of antibiotic CODE STATUS: Full code Disposition: Stable to be discharged home Total Time Total Time Spent Total Time Spent (In Minutes): 35mins Total Time Includes: Examination of the Patient, Discharge Planning and Medication Reconciliation Discharge Plan Discharge Items Patient Disposition: Home - Self-Care Reason For Visit: ASTHMA EXACERBATION Discharge Diagnosis: Asthma exacerbation Activity: Resume your previous activity Non-emergency contact: Primary Care Provider Call non-emergency contact if: you have any medication questions Follow-up/Referrals: Lesli Clay DO [Primary Care Provider] - 12/28/19 1:15 pm (If you need to change this appointment, please call .) Diet: Regular Addtl Attending Provider Instructions: Continue take inhalers as instructed Need to have a pulmonary function test Pending Studies at Discharge: No Stand-Alone Forms: [facility], Work/School Release (Inpt), Smoking Cessation Medications and DC Order Prescriptions: New fluticasone propion-salmeterol [Advair Diskus] 250-50 mcg/dose blister with device 1 puffs INH BID Qty: 60 RF: 3 prednisone 20 mg tablet 20 mg PO UD Qty: 7 RF: 0 azithromycin [Zithromax] 250 mg Tablet 250 mg PO QAM 3 Days Qty: 3 RF: 0 Continued albuterol sulfate 90 mcg/actuation Hfa Aerosol Inhaler 1 puff INHALATION Q6H PRN (Reason: sob/wheezing) Qty: 1 RF: 3 Discontinued prednisone 10 mg tablet See Rx Instructions .ROUTE .COMPLEX RF: 0 Discharge Orders: Discharge Order (Routine); Ordered 12/27/19 Ordered By: Elyssa Nunn/Other Patient Handouts: Pulmonary Function Tests Admission Data Admit Date/Time: 12/24/19 16:10 Attending Provider: Elyssa Mendoza Admit Provider: Arleth Ortiz Primary Care Provider: Lesli Clay Other Providers: Arleth Ortiz Other Interventions: Discharge Summary Assessment (RN) Last Done: 12/27/19 09:18 DC Date/Time DO NOT enter until pt leaves facility: 12/27/19 10:15
== END 2019-12-27 10:15 | disposition home or self-care (01) | DRG 189 ==
LOC: ED 12:04 → SUATTDRO 16:10 → 2N 16:10